=== PATIENT | female | born 1990 ===

== ENCOUNTER 2021-05-06 10:33 | Outpatient (CLI) | payer OTHER | END 2021-05-06 10:34 | disposition home or self-care (01) | LOC: BICCT 10:33 | PROVIDERS: ATTEND Physician Assistant Medical | DX: K52.9 Noninfective gastroenteritis and colitis, unspecified (principal); R10.32 Left lower quadrant pain; K21.9 Gastro-esophageal reflux disease without esophagitis; J98.4 Other disorders of lung; N83.8 Other noninflammatory disorders of ovary, fallopian tube and broad ligament | CPT/HCPCS: 74177 ==